=== PATIENT | male | born 2000 | race Caucasian/White ===

== ENCOUNTER 2021-08-20 13:09 | Emergency (ER) | payer OTHER ==
[~2021-08-20] VITALS: Ht 160 cm; Wt 63.5 kg
[~2021-08-20 13:09] MED LIST: Nortriptyline H10 MG PO
[2021-08-20] MEDS ORDERED: NEOPOLHCSU BOTHEARS (13:52)
== END 2021-08-20 14:01 | disposition home or self-care (01) ==
LOC: ER 13:09
DX: H60.91 Unspecified otitis externa, right ear (principal); Z88.1 Allergy status to other antibiotic agents; Z88.2 Allergy status to sulfonamides
CPT/HCPCS: 99282